=== PATIENT | male | born 1975 | race American Indian/Alaskan Native ===

== ENCOUNTER 2020-07-16 21:09 | Emergency (ER) | payer BC, OTHER ==
[2020-07-17] MEDS ORDERED: IBUPROFEN 600 MG TAB PO ONE (00:15)
--- NOTE | 2020-07-17 00:41 | Emergency Department Report ---
- General Chief Complaint: Upper Respiratory Infection Stated Complaint: COUGH;SINUS HEADACHE Time Seen by Provider: 07/17/20 00:10 Source: patient Mode of arrival: Ambulatory Limitations: No Limitations - History of Present Illness Initial Comments: Patient is a 45-year-old male presents emergency room complaints of URI symptoms that began yesterday. He has associated cough, chest congestion, rhinorrhea, sinus pressure, headache. He denies any sick contacts or recent travel. He has not been tested for COVID-19. He states he has received 1 part of the Moderna vaccine against COVID-19. He did states he did not feel like he was having a fever at home. He denies any nausea, vomiting, diarrhea, shortness of breath, chest pain, abdominal pain. No past medical history. No allergies to medications. He states he is a non-smoker. - Related Data Home Medications Medication Instructions Recorded Confirmed Last Taken Lisinopril [Zestril] 2.5 mg PO QDAY 05/19/14 05/19/14 05/19/14 09:00 Pravastatin [Pravachol] 20 mg PO QDAY 05/19/14 05/19/14 05/19/14 09:00 Sitagliptin Phos/Metformin HCl 1 tab PO BID 05/19/14 05/19/14 05/19/14 09:00 [Janumet 50-1,000 mg] Previous Rx's Medication Instructions Recorded Last Taken Type Ibuprofen [Motrin] 800 mg PO Q8H #30 tablet 05/19/14 Unknown Rx methOCARBAMOL [Robaxin] 500 mg PO Q6H #30 tablet 05/19/14 Unknown Rx methylPREDNISolone [Medrol Dose 4 mg PO DAILY 6 Days tab 05/19/14 Unknown Rx Ricardo] traMADoL [Ultram 50 MG tab] 50 mg PO Q6HR PRN #20 tablet 05/19/14 Unknown Rx Benzonatate [Tessalon Perles] 100 mg PO Q8HR PRN #12 capsule 07/17/20 Unknown Rx Fluticasone [Flonase] 1 spray NS QDAY #1 bottle 07/17/20 Unknown Rx guaiFENesin ER [Mucinex ER] 600 mg PO Q12H 7 Days #14 tablet.er 07/17/20 Unknown Rx Allergies Allergy/AdvReac Type Severity Reaction Status Date / Time No Known Allergies Allergy Verified 05/19/14 12:14 ED Review of Systems ROS: Stated complaint: COUGH;SINUS HEADACHE Other details as noted in HPI Comment: All other systems reviewed and negative ED Past Medical Hx - Past Medical History Previous Medical History?: Yes Hx Diabetes: Yes - Surgical History Past Surgical History?: No - Social History Smoking Status: Never Smoker Substance Use Type: Alcohol - Medications Home Medications: Home Medications Medication Instructions Recorded Confirmed Last Taken Type Ibuprofen [Motrin] 800 mg PO Q8H #30 tablet 05/19/14 Unknown Rx Lisinopril [Zestril] 2.5 mg PO QDAY 05/19/14 05/19/14 05/19/14 09:00 History Pravastatin [Pravachol] 20 mg PO QDAY 05/19/14 05/19/14 05/19/14 09:00 History Sitagliptin Phos/Metformin HCl 1 tab PO BID 05/19/14 05/19/14 05/19/14 09:00 History [Janumet 50-1,000 mg] methOCARBAMOL [Robaxin] 500 mg PO Q6H #30 tablet 05/19/14 Unknown Rx methylPREDNISolone [Medrol Dose 4 mg PO DAILY 6 Days tab 05/19/14 Unknown Rx Ricardo] traMADoL [Ultram 50 MG tab] 50 mg PO Q6HR PRN #20 tablet 05/19/14 Unknown Rx Benzonatate [Tessalon Perles] 100 mg PO Q8HR PRN #12 capsule 07/17/20 Unknown Rx Fluticasone [Flonase] 1 spray NS QDAY #1 bottle 07/17/20 Unknown Rx guaiFENesin ER [Mucinex ER] 600 mg PO Q12H 7 Days #14 tablet.er 07/17/20 Unknown Rx ED Physical Exam - General Limitations: No Limitations General appearance: alert, in no apparent distress - Head Head exam: Present: atraumatic, normocephalic - Eye Eye exam: Present: normal appearance - ENT ENT exam: Present: normal orophraynx, mucous membranes moist, TM's normal bilaterally, normal external ear exam, other (no sinus ttp bilaterally, no purulent drainage, no edema of the nasal turbinates) - Respiratory Respiratory exam: Present: normal lung sounds bilaterally. Absent: respiratory distress, wheezes, rales, rhonchi, stridor, chest wall tenderness, accessory muscle use, decreased breath sounds, prolonged expiratory - Cardiovascular Cardiovascular Exam: Present: regular rate, normal rhythm, normal heart sounds. Absent: systolic murmur, diastolic murmur, rubs, gallop - Neurological Exam Neurological exam: Present: alert, oriented X3 - Psychiatric Psychiatric exam: Present: normal affect, normal mood - Skin Skin exam: Present: warm, dry, intact ED Course Vital Signs 07/16/20 07/17/20 07/17/20 23:34 01:21 01:31 Temperature 100.2 F H 98.8 F Pulse Rate 96 H 83 93 H Respiratory 16 17 16 Rate Blood Pressure 158/84 124/85 [Right] O2 Sat by Pulse 97 99 99 Oximetry ED Medical Decision Making - Lab Data Vital Signs 07/16/20 07/17/20 07/17/20 23:34 01:21 01:31 Temperature 100.2 F H 98.8 F Pulse Rate 96 H 83 93 H Respiratory 16 17 16 Rate Blood Pressure 158/84 124/85 [Right] O2 Sat by Pulse 97 99 99 Oximetry - Radiology Data Radiology results: report reviewed Ordering Physician: ASHLEY SUTHERLAND Date of Service: 07/17/20 Procedure(s): XR chest routine 2V Accession Number(s): [id number] cc: ASHLEY SUTHERLAND Fluoro Time In Minutes: CHEST 2 VIEWS INDICATION: cough, fever. COMPARISON: None. FINDINGS: Support devices: None. Heart: Within normal limits. Lungs/Pleura: No acute air space or interstitial disease. No significant pleural effusion. IMPRESSION: No acute findings. Signer Name: Tae Gracia MD Signed: 07/17/2020 12:45 AM Workstation Name: [id number] Transcribed By: ES Dictated By: Tae Gracia MD Electronically Authenticated By: Tae Gracia MD Signed Date/Time: 07/17/2044 DD/ TD/TT: - Medical Decision Making Patient is a 45-year-old male presents emergency room complaints of URI symptoms that began yesterday. He has associated cough, chest congestion, rhinorrhea, sinus pressure, headache. He denies any sick contacts or recent travel. He has not been tested for COVID-19. He states he has received 1 part of the Moderna vaccine against COVID-19. He did states he did not feel like he was having a fever at home. He denies any nausea, vomiting, diarrhea, shortness of breath, chest pain, abdominal pain. No past medical history. No allergies to medications. He states he is a non-smoker. Vitals with low-grade fever which improved upon ibuprofen administration. On exam patient has clear breath sounds bilaterally, no wheezing, no rales, no rhonchi, normal nasal turbinates, no sinus tenderness palpation, normal oropharynx. Chest x-ray: IMPRESSION: No acute findings. Symptoms appear most consistent with viral URI at this time. Patient given prescriptions for symptomatic relief. Advised patient Please increase your fluid intake over the next several days. Follow-up with a primary care doctor for reexamination. Return to emergency room immediately for any new or worsening symptoms including but not limited to difficulty breathing, shortness of breath, severe chest pain, unable to tolerate by mouth intake, etc. Recommend for you to get COVID-19 testing, may have this done at primary care doctor, health department, [facility],etc. please follow CDC guidelines regarding COVID-19 and quarantine as necessary. Please return if symptoms are persisting greater than 10 days. Critical care attestation.: If time is entered above; I have spent that time in minutes in the direct care of this critically ill patient, excluding procedure time. ED Disposition Clinical Impression: Upper respiratory infection Qualifiers: URI type: unspecified URI Qualified Code(s): J06.9 - Acute upper respiratory infection, unspecified Disposition: DC-01 TO HOME OR SELFCARE Is pt being admited?: No Does the pt Need Aspirin: No Condition: Stable Instructions: Viral Respiratory Infection Additional Instructions: Please increase your fluid intake over the next several days. Follow-up with a primary care doctor for reexamination. Return to emergency room immediately for any new or worsening symptoms including but not limited to difficulty breathing, shortness of breath, severe chest pain, unable to tolerate by mouth intake, etc. Recommend for you to get COVID-19 testing, may have this done at primary care doctor, health department, [facility],etc. please follow CDC guidelines regarding COVID-19 and quarantine as necessary. Please return if symptoms are persisting greater than 10 days. Prescriptions: Fluticasone [Flonase] 1 spray NS QDAY #1 bottle guaiFENesin ER [Mucinex ER] 600 mg PO Q12H 7 Days #14 tablet.er Benzonatate [Tessalon Perles] 100 mg PO Q8HR PRN #12 capsule PRN Reason: cough Referrals: [facility] [Provider Group] - 2-3 Days LIBIA COLVIN MD [Staff Physician] - 2-3 Days Time of Disposition: 01:02 Print Language: MALAY
--- NOTE | 2020-07-17 00:50 | XRay Report ---
CHEST 2 VIEWS INDICATION: cough, fever. COMPARISON: None. FINDINGS: Support devices: None. Heart: Within normal limits. Lungs/Pleura: No acute air space or interstitial disease. No significant pleural effusion. IMPRESSION: No acute findings. Signer Name: Tae Gracia MD Signed: 07/17/2020 12:45 AM Workstation Name: [id number]
[2020-07-17 01:31] VITALS: BP 124/85
== END 2020-07-17 01:31 | disposition home or self-care (01) ==
LOC: ED 21:09
DX: J06.9 Acute upper respiratory infection, unspecified (principal); E11.9 Type 2 diabetes mellitus without complications; Z79.899 Other long term (current) drug therapy
CPT/HCPCS: 71046